=== PATIENT | female | born 1965 | race Caucasian/White ===

== ENCOUNTER 2019-04-13 12:32 | Emergency (ER) | payer OTHER ==
[2019-04-13 12:38] VITALS: BP 117/77
--- OUTSIDE RECORDS SUMMARY | 2019-04-13 12:38 | XMS REPORT | Continuity of Care Document ---
:1965 External Reference #:[id number] Author Name Kyleigh Enriquez PA (transmitted by agent of provider Eben Charles) Address [address] [facility] [address] [place] [address] Care Team Providers Name Role Phone HCP given Care Team Information Manager Technical Unavailable Problems Active Problems Provider Date Refractory migraine with aura Belinda Demarco Onset: 11/27/2013 Chronic obstructive lung disease Eben Charles D.O. Onset: 01/20/2014 Tobacco user Eben Charles D.O. Onset: 01/20/2014 Skin sensation disturbance Eben Charles D.O. Onset: 07/29/2014 Depressive disorder Eben Charles D.O. Onset: 07/29/2014 Adhesive capsulitis of shoulder Eben Charles D.O. Onset: 09/23/2014 Vitamin D deficiency Eben Charles D.O. Onset: 02/18/2015 Cobalamin deficiency Eben Charles D.O. Onset: 09/09/2015 Low back pain Eben Charles D.O. Onset: 09/09/2015 Mild intermittent asthma, uncomplicated Eben Charles D.O. Onset: 2015 Abdominal pain Eben Charles D.O. Onset: 09/28/2015 Premenopausal menorrhagia Eben Charles D.O. Onset: 09/28/2015 Fibromyalgia Eben Charles D.O. Onset: 11/09/2015 Acute bronchitis Eben Charles D.O. Onset: 05/09/2016 Anxiety state Eben Charles D.O. Onset: 05/09/2016 Chondrocalcinosis of knee joint Eben Charles D.O. Onset: 06/13/2016 Acute maxillary sinusitis Eben Charles D.O. Onset: 07/14/2016 Allergic rhinitis Eben Charles D.O. Onset: 11/27/2016 Gastroesophageal reflux disease Eben Charles D.O. Onset: 11/27/2016 Psoriasis Kyleigh Enriquez PA Onset: 02/19/2019 Social History Type Date Description Comments Sex Unknown Tobacco Use Start: Unknown currently smokes 1/2 Pack Daily to 1 ETOH Use Denies alcohol use Recreational Drug Use Denies Drug Use Tobacco Use Start: Unknown Patient is a current smoker, smokes every day Smoking Status Reviewed: 03/25/19 Patient is a current smoker, smokes every day Enjoy Exercising Enjoys exercising Exercise Type/Frequency Exercises rarely Sun Exposure Does not use sunscreen Seat Belt/Car Seat Yes Guns in Home No Smoke Alarms Yes smoke alarm Allergies, Adverse Reactions, Alerts Active Allergies Reaction Severity Comments Date Nortriptyline Diarrhea Moderate 02/27/2017 Inactive Allergies NKDA 10/29/2013 Medications Active Medications SIG Qnty Indications Ordering Date Provider Clobetasol apply small amount 30gm L40.9 Silcoff, 02/19/2019 Propionate E to affected areas Garland Torres 0.05% (external only) Cream twice daily as needed Gabapentin 1 by mouth twice 60caps F41.9 Unknown 04/10/2018 300mg daily Capsules Vitamin D-3 1 tab by mouth 90tabs Eben Charles, 03/08/2018 5000Unit every day or 7 tabs D.O. Tablets once a week Calcipotriene Apply To Affected 60units B35.3 Eben Charles, 03/08/2018 0.005% Area Twice A Day D.O. Cream For Relief Of Psoriasis Betamethasone apply 1 application 60units B37.2 Eben Charles, 03/08/2018 Dipropionate topically to D.O. 0.05% affected area 2 Lotion times per day for skin condition with itching Augmented apply 1-2 times a 90gm L40.9 Silcoff, 01/14/2018 Betamethasone day to effected Garland Torres Dipropionate areas of skin 0.05% Ointment Omeprazole take 1 capsule by 90caps K21.9 Eben Charles, 11/30/2017 40mg mouth once daily D.O. Capsules DR Benjamin take 1 tablet by 90tabs F32.9 Eben Charles, 09/07/2017 Hydrobromide mouth daily D.O. 20mg Tablets Mirtazapine 1 by mouth every 90tabs F41.9 Eben Charles, 08/29/2017 7.5mg night for sleep and D.O. Tablets anxiety Advair HFA 2 puffs twice a day 36gm J44.9 Silcoff, 08/25/2016 rinse mouth after Garland Torres 115-21mcg/Act use Aerosol Buspirone HCL Take 1 Tablet By 60tabs F41.9 Eben Charles, 05/09/2016 5mg Mouth Twice A Day D.O. Tablets If Needed For Anxiety Ventolin HFA inhale 2 puffs by 18units J44.9 Eben Charles, 11/16/2015 mouth every 4 hours D.O. 108(90Base) mcg/Act as needed for Aerosol bronchospasm J44.1 Incruse Ellipta Inhale 1 puff Daily 30units J44.9 Eben Charles, 2015 For Chronic D.O. 62.5mcg/Inh Aerosol Obstructive Lung Disease Fluticasone instill 2 sprays into 32gm J30.9 Eben Charles, Propionate each nostril once D.O. 50mcg/Act daily Suspension History Medications Fluconazole 2 tabs on day 1 15tabs B35.3 Eben Charles, 12/16/2018 - 200mg the 1 tab daily D.O. 12/30/2018 Tablets for 2 weeks. M79.7 Medications Administered in Office Medication SIG Qnty Indications Ordering Provider Date injection, kenalog, 10 mg Eben Charles D.OKathy 06/13/2016 Injection B12 Injection Eben Charles D.OKathy 11/09/2015 Injection SC/Im Injections Eben Charles D.OKathy 11/09/2015 Injection B12 Injection Nurse's Schedule 10/11/2015 Injection SC/Im Injections Nurse's Schedule 10/11/2015 Injection B12 Injection Eben Charles D.O. 09/09/2015 Injection SC/Im Injections Eben Charles D.O. 09/09/2015 Injection B12 Injection Eben Charles D.O. 08/05/2015 Injection SC/Im Injections Eben Charles D.O. 08/05/2015 Injection B12 Injection Nurse's Schedule 07/08/2015 Injection SC/Im Injections Nurse's Schedule 07/08/2015 Injection B12 Injection Nurse's Schedule 06/08/2015 Injection SC/Im Injections Nurse's Schedule 06/08/2015 Injection B12 Injection Eben Charles D.OKathy 05/10/2015 Injection SC/Im Injections Eben Charles D.O. 05/10/2015 Injection B12 Injection Nurse's Schedule 04/14/2015 Injection SC/Im Injections Nurse's Schedule 04/14/2015 Injection B12 Injection Nurse's Schedule 03/15/2015 Injection SC/Im Injections Nurse's Schedule 03/15/2015 Injection B12 Injection Nurse's Schedule 02/11/2015 Injection SC/Im Injections Nurse's Schedule 02/11/2015 Injection B12 Injection Eben Charles D.OKathy 01/05/2015 Injection SC/Im Injections Eben Charles D.O. 01/05/2015 Injection B12 Injection Nurse's Schedule 12/11/2014 Injection SC/Im Injections Nurse's Schedule 12/11/2014 Injection B12 Injection Eben Charles D.OKathy 08/12/2014 Injection SC/Im Injections Eben Charles D.O. 08/12/2014 Injection Immunizations CPT Code Status Date Vaccine Lot # [id number] Given 03/19/2019 Influenza Virus Vaccine, Quadrivalent, Split, Preservative Free 46057 Given 09/05/2018 Shingrix Zoster (Shingles) Vaccine (HZV) [id number] Recomb,Subnit,Adjuvanted 06125 Given 03/08/2018 Shingrix Zoster (Shingles) Vaccine (HZV) [id number] Recomb,Subnit,Adjuvanted 75717 Given 03/08/2018 Influenza Virus Vaccine, Quadrivalent, Split, [id number] Preservative Free U-Flu Given 02/22/2017 Influenza,Unspecified 27395 Given 04/09/2016 Influenza Virus Vaccine, Quadrivalent, Split, Preservative Free 79204 Given 03/22/2016 Pneumococcal Immunization [id number] 23232 Given 04/02/2015 Influenza Virus Vaccine, Quadrivalent, Split, Preservative Free 66820 Given 09/23/2014 Pneumococcal Immunization [id number] 74061 Given 09/23/2014 Adacel or Boostrix, TDaP [id number] Vital Signs Date Vital Result Comment 03/25/2019 9:02am BP Systolic 112 mmHg BP Diastolic 80 mmHg Height 66.5 inches 5'6.50" Weight 206.00 lb w/shoes BMI (Body Mass Index) 32.7 kg/m2 02/19/2019 1:21pm BP Systolic 114 mmHg BP Diastolic 70 mmHg Weight 208.00 lb Results Test Date Facility Test Result H/L Range Note Laboratory test finding 03/25/2019 In House Hemoglobin A1c 6.1 Laboratory test finding 12/16/2018 In House Hemoglobin A1c 6.3 Procedures Date Code Description Status 12/16/2018 51363 Brief Emotional/Behav Assessment W/ Scoring Doc Per Completed Standard Inst 09/04/2018 [id number] Mammogram Completed 12/04/2017 19461980 Colonoscopy Completed Medical Devices Description No Information Available Encounters Type Date Location Provider Dx Diagnosis Office Visit 02/19/2019 Main Office Kyleigh Enriquez PA L40.9 Psoriasis, 1:20p unspecified Office Visit 12/16/2018 Main Office Eben Charles, R73.01 Impaired fasting 8:55a D.O. glucose F41.9 Anxiety disorder, unspecified M54.5 Low back pain F33.1 Major depressive disorder, recurrent, moderate F17.210 Nicotine dependence, cigarettes, uncomplicated L40.9 Psoriasis, unspecified M79.7 Fibromyalgia B35.3 Tinea pedis J44.9 Chronic obstructive pulmonary disease, unspecified K21.9 Gastro-esophageal reflux disease without esophagitis E66.9 Obesity, unspecified M54.2 Cervicalgia G90.09 Other idiopathic peripheral autonomic neuropathy Assessments Date Code Description Provider 03/25/2019 Z68.32 Body mass index (BMI) 32.0-32.9, adult Eben Charles D.O. 03/25/2019 R73.01 Impaired fasting glucose Eben Charles D.O. 02/19/2019 L40.9 Psoriasis, unspecified Hekfarhad, Kyleigh, PA 12/16/2018 R73.01 Impaired fasting glucose Eben Charles D.O. 12/16/2018 F41.9 Anxiety disorder, unspecified Eben Charles D.O. 12/16/2018 M54.5 Low back pain Eben Charles D.O. 12/16/2018 F33.1 Major depressive disorder, recurrent, Eben Charles D.O. moderate 12/16/2018 F17.210 Nicotine dependence, cigarettes, Eben Charles D.O. uncomplicated 12/16/2018 L40.9 Psoriasis, unspecified Eben Charles D.O. 12/16/2018 M79.7 Fibromyalgia Eben Charles D.O. 12/16/2018 B35.3 Tinea pedis Eben Charles D.O. 12/16/2018 J44.9 Chronic obstructive pulmonary disease, Eben Charles D.O. unspecified 12/16/2018 K21.9 Gastro-esophageal reflux disease without Eben Charles D.O. esophagitis 12/16/2018 E66.9 Obesity, unspecified Eben Charles D.O. 12/16/2018 M54.2 Cervicalgia Eben Charles D.O. 12/16/2018 G90.09 Other idiopathic peripheral autonomic Eben Charles D.O. neuropathy Plan of Treatment No Information Available Functional Status Description No Information Available Mental Status Description No Information Available Referrals Description No Information Available
--- OUTSIDE RECORDS SUMMARY | 2019-04-13 12:38 | XMS REPORT | Continuity of Care Document ---
:1965 External Reference #:[id number] Author Name Eben Charles D.O. Address [address] [place] [id number] Care Team Providers Name Role Phone HCP given Care Team Information [employer] Supervisor Unavailable Problems Active Problems Provider Date Refractory [...] 01/14/2018 Betamethasone day to effected Garland Torres Dipropbrenda areas of skin 0.05% Ointment Omeprazole take 1 capsule by 90caps K21.9 Eben Charles, 11/30/2017 40mg mouth once daily D.O. Capsules Citaloprashyam take 1 tablet by 90tabs F32.9 Eben [...] D.OKathy 06/13/2016 Injection B12 Injection Eben Charles D.Ann 11/09/2015 Injection SC/Im Injections Eben Charles D.OKathy [...] D.OKathy 08/12/2014 Injection SC/Im Injections Eben Charles D.OKathy 08/12/2014 Injection Immunizations CPT Code Status Date Vaccine Lot # [id number] Given 03/19/2019 Influenza Virus Vaccine, Quadrivalent, Split, Preservative Free 58945 Given 09/05/2018 Shingrix Zoster (Shingles) Vaccine (HZV) [id number] Recomb,Subnit,Adjuvanted 59177 Given 03/08/2018 Shingrix Zoster (Shingles) Vaccine (HZV) [id number] Recomb,Subnit,Adjuvanted 01023 Given 03/08/2018 Influenza Virus Vaccine, Quadrivalent, Split, [id number] Preservative Free U-Flu Given 02/22/2017 Influenza,Unspecified 03924 Given 04/09/2016 Influenza Virus Vaccine, Quadrivalent, Split, Preservative Free 31238 Given 03/22/2016 Pneumococcal Immunization [id number] 91634 Given 04/02/2015 Influenza Virus Vaccine, Quadrivalent, Split, Preservative Free 20667 Given 09/23/2014 Pneumococcal Immunization [id number] 75003 Given 09/23/2014 Adacel or Boostrix, TDaP [id number] Vital Signs Date Vital Result Comment 03/25/2019 [...] 6.3 Procedures Date Code Description Status 12/16/2018 61826 Brief Emotional/Behav Assessment W/ Scoring Doc Per Completed Standard Inst 09/04/2018 [id number] Mammogram Completed 12/04/2017 [id number] Colonoscopy Completed Medical Devices Description No Information [...] Eben Charles D.O. 02/19/2019 L40.9 Psoriasis, unspecified Kyleigh Enriquez, JUAN J 12/16/2018 R73.01 Impaired fasting glucose Eben Charles D.OKathy 12/16/2018 F41.9 Anxiety disorder, unspecified Eben Charles D.O. 12/16/2018 M54.5 Low back pain Eben Charles D.OKathy 12/16/2018 F33.1 Major depressive disorder, recurrent, Eben Charles D.O. moderate 12/16/2018 F17.210 Nicotine dependence, cigarettes, Eben Charles D.O. uncomplicated 12/16/2018 L40.9 Psoriasis, unspecified Eben Charles D.O. 12/16/2018 M79.7 Fibromyalgia Eben Charles D.OKathy 12/16/2018 B35.3 Tinea pedis Eben Charles D.OKathy 12/16/2018 J44.9 Chronic obstructive pulmonary disease, Eebn Charles D.O. unspecified 12/16/2018 K21.9 Gastro-esophageal reflux disease without Eben Charles D.O. esophagitis 12/16/2018 E66.9 Obesity, unspecified Eben Charles D.O. 12/16/2018 M54.2 Cervicalgia Eben Charles D.OKathy 12/16/2018 G90.09 Other idiopathic peripheral autonomic Eben Charles D.OKathy neuropathy Plan of Treatment No Information Available Functional Status Description No Information Available Mental Status Description No Information Available Referrals Description No Information Available
--- OUTSIDE RECORDS SUMMARY | 2019-04-13 12:38 | XMS REPORT | Continuity of Care Document ---
:1965 External Reference #:[id number] Author Name Eben Charles D.O. Address [address] [place] [id number] Care Team Providers Name Role Phone HCP given Care Team Information Dba Manager Unavailable Problems Active Problems Provider Date Refractory [...] 09/28/2015 Fibromyalgia Eben Charles D.O. Onset: 11/09/2015 Anxiety state Eben Charles D.O. Onset: 05/09/2016 Chondrocalcinosis of knee joint Eben Charles D.O. Onset: 06/13/2016 Allergic rhinitis Eben Charles D.O. Onset: 11/27/2016 [...] Medications Active Medications SIG Qnty Indications Ordering Provider Date Terbinafine HCL 1 tab by mouth 30tabs L40.9 Eben Charles, 03/25/2019 250mg daily x4 weeks D.O. Tablets B35.1 Clobetasol Propionate apply small amount to 30gm L40.9 Brian Ramírez, E affected areas M.D. 0.05% Cream (external only) twice daily as needed Gabapentin 1 by mouth twice 60caps F41.9 Unknown 04/10/2018 300mg Capsules daily Vitamin D-3 1 tab by mouth every 90tabs Eben Charles, 03/08/2018 5000Unit day or 7 tabs once a D.O. Tablets week Calcipotriene Apply To Affected 60units B35.3 Eben Charles, 03/08/2018 0.005% Area Twice A Day For D.O. Cream Relief Of Psoriasis Betamethasone apply 1 application 60units B37.2 Eben Charles, 03/08/2018 Dipropionate topically to affected D.O. 0.05% Lotion area 2 times per day for skin condition with itching Augmented apply 1-2 times a day 90gm L40.9 Brian Ramírez, 01/14/2018 Betamethasone to effected areas of M.D. Dipropionate skin 0.05% Ointment Omeprazole take 1 capsule by 90caps K21.9 Eben Charles, 11/30/2017 40mg Capsules mouth once daily D.O. Citaloprashyam take 1 tablet by 90tabs F32.9 Eben Charles, 09/07/2017 Hydrobromide mouth daily D.O. 20mg Tablets Mirtazapine 1 by mouth every 90tabs F41.9 Eben Charles, 08/29/2017 7.5mg Tablets night for sleep and D.O. anxiety Advair HFA 2 puffs twice a day 36gm J44.9 RoelmirBrian, 08/25/2016 115-21mcg/Act rinse mouth after use M.D. Aerosol Buspirone HCL Take 1 Tablet By 60tabs F41.9 Eben Charles, 05/09/2016 5mg Tablets Mouth Twice A Day If D.O. Needed For Anxiety Ventolin HFA inhale 2 puffs by 18units J44.9 Eben Charles, 11/16/2015 108(90Base) mouth every 4 hours D.O. mcg/Act Aerosol as needed for bronchospasm J44.1 Incruse Ellipta Inhale 1 puff [...] CPT Code Status Date Vaccine Lot # [id number] Given 03/19/2019 Influenza Virus Vaccine, Quadrivalent, Split, Preservative Free 04598 Given 09/05/2018 Shingrix Zoster (Shingles) Vaccine (HZV) [id number] Recomb,Subnit,Adjuvanted 10558 Given 03/08/2018 Shingrix Zoster (Shingles) Vaccine (HZV) [id number] Recomb,Subnit,Adjuvanted 10151 Given 03/08/2018 Influenza Virus Vaccine, Quadrivalent, Split, [id number] Preservative Free U-Flu Given 02/22/2017 Influenza,Unspecified 42943 Given 04/09/2016 Influenza Virus Vaccine, Quadrivalent, Split, Preservative Free 59717 Given 03/22/2016 Pneumococcal Immunization [id number] 79188 Given 04/02/2015 Influenza Virus Vaccine, Quadrivalent, Split, Preservative Free 37888 Given 09/23/2014 Pneumococcal Immunization [id number] 36353 Given 09/23/2014 Adacel or Boostrix, TDaP [id number] Vital Signs Date Vital Result Comment 03/25/2019 [...] 6.3 Procedures Date Code Description Status 12/16/2018 09188 Brief Emotional/Behav Assessment W/ Scoring Doc Per Completed Standard Inst 09/04/2018 [id number] Mammogram Completed 12/04/2017 [id number] Colonoscopy Completed Medical Devices Description No Information Available Encounters Type Date Location Provider Dx Diagnosis Office Visit 03/25/2019 Main Office Eben Charles, Z68.32 Body mass index 8:55a D.O. (BMI) 32.0-32.9, adult R73.01 Impaired fasting glucose M25.511 Pain in right shoulder M54.5 Low back pain M76.62 Achilles tendinitis, left leg M76.61 Achilles tendinitis, right leg F41.9 Anxiety disorder, unspecified L40.9 Psoriasis, unspecified F33.1 Major depressive disorder, recurrent, moderate F17.210 Nicotine dependence, cigarettes, uncomplicated M79.7 Fibromyalgia B35.3 Tinea pedis J44.9 Chronic obstructive pulmonary disease, unspecified K21.9 Gastro-esophageal reflux disease without esophagitis Office Visit 02/19/2019 1:20p Main Office Kyleigh Enriquez, L40.9 Psoriasis, PA unspecified Office Visit 12/16/2018 8:55a Main Office Eben Charles, R73.01 Impaired fasting D.O. glucose F41.9 Anxiety disorder, unspecified M54.5 [...] Z68.32 Body mass index (BMI) 32.0-32.9, adult Araceli Eben, D.O. 03/25/2019 R73.01 Impaired fasting glucose Jhonathank, Eben, D.O. 03/25/2019 M25.511 Pain in right shoulder JhonathankCydneyon, D.O. 03/25/2019 M54.5 Low back pain Soplink, Eben, D.O. 03/25/2019 M76.62 Achilles tendinitis, left leg Soplink, Eben, D.O. 03/25/2019 M76.61 Achilles tendinitis, right leg Sopchak, Eben, D.O. 03/25/2019 F41.9 Anxiety disorder, unspecified Sopchak, Eben, D.O. 03/25/2019 L40.9 Psoriasis, unspecified Sopchak, Eben, D.O. 03/25/2019 F33.1 Major depressive disorder, recurrent, Sopchak, Eben, D.O. moderate 03/25/2019 F17.210 Nicotine dependence, cigarettes, Soplink, Eben, D.O. uncomplicated 03/25/2019 M79.7 Fibromyalgia Soplink, Eben, D.O. 03/25/2019 B35.3 Tinea pedis Soplink, Eben, D.O. 03/25/2019 J44.9 Chronic obstructive pulmonary disease, Soplink, Eben, D.O. unspecified 03/25/2019 K21.9 Gastro-esophageal reflux disease without Sopchak, Eben, D.O. esophagitis 02/19/2019 L40.9 Psoriasis, unspecified Kyleigh Enriquez PA 12/16/2018 R73.01 Impaired fasting glucose Jhonathank, Eben, D.O. 12/16/2018 F41.9 Anxiety disorder, unspecified Eben Charles D.OKathy 12/16/2018 M54.5 Low back pain Eben Charles D.O. 12/16/2018 F33.1 Major depressive disorder, recurrent, Eben Charles D.O. moderate 12/16/2018 F17.210 Nicotine dependence, cigarettes, Eben Charles D.OKathy uncomplicated 12/16/2018 L40.9 Psoriasis, unspecified Eben Charles D.O. 12/16/2018 M79.7 Fibromyalgia Eben Charles D.OKathy 12/16/2018 B35.3 Tinea pedis Eben Charles D.O. 12/16/2018 J44.9 Chronic obstructive pulmonary disease, Eben Charles D.OKathy unspecified 12/16/2018 K21.9 Gastro-esophageal reflux disease without Eben Charles D.OKathy esophagitis 12/16/2018 E66.9 Obesity, unspecified Eben Charles D.O. 12/16/2018 M54.2 Cervicalgia Eben Charles D.OKathy 12/16/2018 G90.09 Other idiopathic peripheral autonomic Eben Charles D.O. neuropathy Plan of Treatment Future Appointment(s):04/25/2019 9:45 am - Eben Charles D.O. at [facility]/25/2019 - Eben Charles D.O.Z68.32 Body mass index (BMI) 32.0-32.9, ztosbX00.01 Impaired fasting gsasmpgF70.511 Pain in right gqampacpT58.5 Low back painM76.62 Achilles tendinitis, left legM76.61 Achilles tendinitis, right legF41.9 Anxiety disorder, clcwdbieinyN25.9 Psoriasis, unspecifiedNew Medication :Terbinafine HCL 250 mg - 1 tab by mouth daily x4 aekopX75.1 Major depressive disorder, recurrent, sqtzekdkH22.210 Nicotine dependence, cigarettes, rjjmgskvkqkvqA29.7 HpemcujgvveaU65.3 Tinea pedisFollow up:1 month right shoulder pain, back painJ44.9 Chronic obstructive pulmonary disease, aewdvfbjhgoC33.9 Gastro-esophageal reflux disease without esophagitis Functional Status Description No Information Available Mental Status Description No Information Available Referrals Description No Information Available
--- NOTE | 2019-04-13 13:28 | UC ---
Respiratory Complaint HPI - HPI Summary HPI Summary: started with cough and cold 7-8 days ago,has tried OTC mucinex cough medicine with little relief. over past 2 day she feels worse, productive cough and fatigue - History of Current Complaint Chief Complaint: UCRespiratory Stated Complaint: COUGH, Time Seen by Provider: 04/13/19 13:18 Hx Obtained From: Patient Onset/Duration: Gradual Onset Pain Intensity: 0 Character: Cough: Productive Aggravating Factors: Exertion, Deep Breaths Alleviating Factors: Nothing Associated Signs And Symptoms: Positive: Wheezing, Nasal Congestion. Negative: Fever, Hemoptysis, Calf Pain - Allergies/Home Medications Allergies/Adverse Reactions: Allergies Allergy/AdvReac Type Severity Reaction Status Date / Time nortriptyline Allergy GI Upset Verified 04/13/19 12:39 Home Medications: Home Medications Buspirone HCl 1 tab PO DAILY 04/13/19 [History Confirmed 04/13/19] Citalopram TAB* [Celexa TAB*] 1 tab PO DAILY 04/13/19 [History Confirmed ] Gabapentin 1 tab PO DAILY 04/13/19 [History Confirmed 04/13/19] Omeprazole 1 tab PO DAILY 04/13/19 [History Confirmed 04/13/19] Umeclidinium Erwin [Incruse Ellipta] 1 % INH DAILY 04/13/19 [History Confirmed 04/13/19] PMH/Surg Hx/FS Hx/Imm Hx Previously Healthy: Yes Respiratory History: Asthma Psychological History: Anxiety, Depression - Surgical History Surgical History: Yes Surgery Procedure, Year, and Place: cholecystectomy; TUBAL LIGATION - Family History Known Family History: Positive: Hypertension - Social History Occupation: Unemployed Lives: With Family Alcohol Use: None Substance Use Type: None Smoking Status (MU): Heavy Every Day Tobacco Smoker Type: Cigarettes Amount Used/How Often: half pack per day. pt states use has declined Have You Smoked in the Last Year: Yes Cessation Counseling: Patient Advised to Stop - Immunization History Most Recent Influenza Vaccination: refuses Most Recent Tetanus Shot: up to date Most Recent Pneumonia Vaccination: refuses Review of Systems All Other Systems Reviewed And Are Negative: Yes Constitutional: Positive: Fatigue. Negative: Fever, Chills Skin: Positive: Negative. Negative: Rash ENT: Positive: Sinus Congestion. Negative: Sore Throat, Ear Ache Respiratory: Positive: Cough. Negative: Shortness Of Breath Cardiovascular: Positive: Negative. Negative: Chest Pain Neurological: Positive: Negative Psychological: Positive: Negative Is Patient Immunocompromised?: No Physical Exam Triage Information Reviewed: Yes Appearance: Well-Appearing, Well-Nourished, Obese Vital Signs: Initial Vital Signs Temp 97.8 F 04/13/19 12:36 Pulse 110 04/13/19 12:36 Resp 20 04/13/19 12:36 BP 117/77 04/13/19 12:36 Pulse Ox 98 04/13/19 12:36 Vital Signs Reviewed: Yes Eye Exam: Normal ENT: Positive: Pharynx normal, Nasal congestion Neck exam: Normal Neck: Positive: No Lymphadenopathy Respiratory: Positive: Wheezing, Other: - productive cough Cardiovascular Exam: Normal Cardiovascular: Positive: RRR Musculoskeletal Exam: Normal Musculoskeletal: Positive: Strength Intact Neurological Exam: Normal Neurological: Positive: Alert Psychological Exam: Normal Skin Exam: Normal Respiratory Course/Dx - Differential Dx/Diagnosis Differential Diagnosis/HQI/PQRI: Asthma, Bronchitis, Influenza, Lower Resp Infection, Sinusitis Provider Diagnosis: Bronchitis Discharge ED - Sign-Out/Discharge Documenting (check all that apply): Patient Departure All imaging exams completed and their final reports reviewed: No Studies - Discharge Plan Condition: Good Disposition: HOME Prescriptions: Azithromycin TAB* [Zithromax TAB (Z-KEATON) 250 mg #6 tabs] 2 tab PO .TODAY, THEN 1 DAILY #1 keaton Patient Education Materials: Acute Bronchitis (ED), Bronchospasm (ED) Referrals: Eben Charles DO [Primary Care Provider] - 2 Days (recheck cough) Additional Instructions: drink plenty of fluids and rest start z-keaton and take as prescribed continue over the counter cold medication as directed - Billing Disposition and Condition Condition: GOOD Disposition: Home
== END 2019-04-13 13:34 | disposition home or self-care (01) ==
LOC: UCEAST 12:32
DX: J45.909 Unspecified asthma, uncomplicated (principal); F17.210 Nicotine dependence, cigarettes, uncomplicated; F32.9 Major depressive disorder, single episode, unspecified; F41.9 Anxiety disorder, unspecified; R09.81 Nasal congestion; Z79.899 Other long term (current) drug therapy; Z88.8 Allergy status to other drugs, medicaments and biological substances
CPT/HCPCS: 99212; G0463